=== PATIENT | male | born 1975 | race Two or more races ===

== ENCOUNTER 2022-05-10 03:30 | Emergency (ER) | payer OTHER ==
[~2022-05-10] VITALS: Ht 170.2 cm; Wt 80.7 kg
[2022-05-10] MEDS ORDERED: ORPHENADRINE C100 MG PO (05:46)
[2022-05-10] MEDS ORDERED: KETO10TA2 PO (05:46)
== END 2022-05-10 06:07 ==
LOC: ER 03:30
DX: R07.89 Other chest pain (principal)